=== PATIENT | female | born 1985 | race American Indian/Alaskan Native ===

== ENCOUNTER 2019-04-28 08:28 | Emergency (ER) | payer OTHER ==
[~2019-04-28] VITALS: Ht 154.9 cm; Wt 43.5 kg
[2019-04-28] MEDS ORDERED: TESSALON PERLE100 M1 PO (09:05)
[2019-04-28] MEDS ORDERED: PROMETH-CODEIN 65 ML PO (09:05)
== END 2019-04-28 09:44 | disposition home or self-care (01) ==
LOC: ER 08:28
DX: R05 Cough (principal)

== ENCOUNTER 2021-11-11 05:05 | Emergency (ER) | payer OTHER ==
[~2021-11-11] VITALS: Ht 154.9 cm; Wt 42.6 kg
[~2021-11-11 05:05] MED LIST: PROMETH-CODEIN 65 ML PO; TESSALON PERLE100 M1 PO
[2021-11-11] MEDS ORDERED: RIZATRIPTAN10 MG PO (05:13)
== END 2021-11-11 15:49 | disposition home or self-care (01) ==
LOC: ER 05:05
DX: B34.9 Viral infection, unspecified (principal); G43.909 Migraine, unspecified, not intractable, without status migrainosus; Z20.822 Contact with and (suspected) exposure to COVID-19

== ENCOUNTER 2023-03-09 18:28 | Emergency (ER) | payer OTHER ==
[~2023-03-09] VITALS: Ht 154.9 cm; Wt 42.2 kg
[~2023-03-09 18:28] MED LIST changes: +RIZATRIPTAN10 MG PO
[2023-03-09 20:51] LABS: HEMATOCRIT 38.9 % (36.0-45.00); HEMOGLOBIN 13.1 g/dL (12.0-15.00); MEAN CORPUSCULAR HEMOGLOBIN 29.7 pg (27.00-32.0); MEAN CORPUSCULAR HGB CONC 33.8 g/dl (32.0-36.0); PLATELET COUNT 175 K/uL (150-450); RED BLOOD COUNT 4.42 M/uL (4.00-6.00); RED CELL DISTRIBUTION WIDTH 13.3 % (11.5-14.5)
[2023-03-09 21:36] LABS: ALKALINE PHOSPHATASE 73 U/L (50-136); ALT/SGPT 19 U/L (12-78); AMYLASE 72 U/L (25-115); ANION GAP 11 (10.0-20.0); AST/SGOT 15 U/L (15-37); BILIRUBIN TOTAL 0.81 mg/dL (0.3-1.2); BLOOD UREA NITROGEN 13 mg/dL (7-18); BUN CREA RATIO 16 (7.0-25.0); CALCIUM 8.8 mg/dL (8.5-10.1); CARBON DIOXIDE 24 mEq/L (21-32); CHLORIDE 107 mmol/L (98-107); CREATININE SERUM 0.81 mg/dL (0.55-1.02); GFR 78.31; GLOBULINA 3.5 G/DL (2.4-3.5); GLUCOSE FASTING 103 mg/dL (65-100); LIPASE 25 U/L (13-75); OSMOLALITY SERUM 276 MOSM/KG (275-295); SODIUM 138 mmol/L (136-145); TOTAL PROTEIN 7.5 gm/dL (6.4-8.2)
[2023-03-09 21:39] LABS: HCG QUANTITATIVE < 1 mUI/mL (1-3)
== END 2023-03-09 23:57 | disposition home or self-care (01) ==
LOC: ER 18:29
PROVIDERS: General Practice
DX: B34.9 Viral infection, unspecified (principal); R11.10 Vomiting, unspecified; Z20.822 Contact with and (suspected) exposure to COVID-19

== ENCOUNTER 2024-08-06 09:29 | Emergency (ER) | payer OTHER ==
[~2024-08-06] VITALS: Ht 154.9 cm; Wt 44.0 kg
[2024-08-06 12:35] LABS: BASO % 0.5 % (0.1-1.2); EOS # 0.04 (0.04-0.54); EOS % 0.6 % (0.7-7.0); HEMATOCRIT 38.1 % (34.1-44.9); HEMOGLOBIN 12.7 g/dL (11.2-15.7); LYMPH # 0.97 (1.18-3.74); LYMPH % 14.9 % (19.3-53.1); MEAN CORPUSCULAR HEMOGLOBIN 29.1 pg (25.6-32.2); MONO # 0.82 (0.24-0.82); NEUT # 4.65 (1.56-6.13); NEUT % 71.1 % (34.0-71.1); PLATELET COUNT 155 K/uL (163-369); RED BLOOD COUNT 4.36 M/uL (3.93-5.22); RED CELL DISTRIBUTION WIDTH 12.7 % (11.6-14.4)
[2024-08-06 12:48] LABS: MONO % 12.6 % (4.7-12.5)
[2024-08-06 12:51] LABS: COVID-19 AG POSITIVE (NEGATIVE)
[2024-08-06 12:56] LABS: INFLUENZA A AG NEGATIVE (NEGATIVE); INFLUENZA B AG NEGATIVE (NEGATIVE)
== END 2024-08-06 13:57 | disposition home or self-care (01) ==
LOC: ER 09:35
DX: U07.1 COVID-19 (principal); B34.9 Viral infection, unspecified

== ENCOUNTER 2025-02-23 16:01 | Emergency (ER) | payer OTHER ==
[~2025-02-23] VITALS: Ht 154.9 cm; Wt 43.5 kg
[2025-02-23] MEDS ORDERED: CETIRIZINE HCL 5 MG/5 ML ML PO ONE (17:45)
[2025-02-23] MEDS ORDERED: GUAIFEN/DEXTROMETHORPHAN/PE 10 ML BLIST.PACK PO ONE (17:45)
[2025-02-23 19:57] LABS: BASO % 0.3 % (0.1-1.2); EOS # 0.13 (0.04-0.54); EOS % 1.8 % (0.7-7.0); LYMPH # 1.53 (1.18-3.74); LYMPH % 21.2 % (19.3-53.1); MEAN PLATELET VOLUME 9.80 fl (9.4-12.4); MONO # 0.94 (0.24-0.82); MONO % 13.0 % (4.7-12.5); NEUT # 4.59 (1.56-6.13); NEUT % 63.4 % (34.0-71.1); RED CELL DISTRIBUTION WIDTH 12.1 % (11.6-14.4)
[2025-02-23 20:20] LABS: ALT/SGPT 15.0 U/L (12-78); AST/SGOT 14.0 U/L (15-37); BILIRUBIN TOTAL 0.32 mg/dL (0.3-1.2); BUN CREA RATIO 16.0 (7.0-25.0); CREATININE SERUM 0.77 mg/dL (0.55-1.02); GFR 82.61; GLOBULINA 3.7 G/DL (2.4-3.5); GLUCOSE FASTING 90.0 mg/dL (65-100); OSMOLALITY SERUM 282.0 MOSM/KG (275-295)
[2025-02-23 20:29] LABS: COVID-19 AG NEGATIVE (NEGATIVE)
[2025-02-23] MEDS ORDERED: GILTUSS COUGH-118 M1 PO (22:01)
[2025-02-23] MEDS ORDERED: ACETAMINOPHEN500 M1 PO (22:01)
== END 2025-02-24 03:27 | disposition home or self-care (01) ==
LOC: ER 16:02
PROVIDERS: Preventive Medicine Public Health & General Preventive Medicine
DX: B34.9 Viral infection, unspecified (principal); G43.909 Migraine, unspecified, not intractable, without status migrainosus; Z20.822 Contact with and (suspected) exposure to COVID-19